=== PATIENT | male | born 1990 | race Two or more races ===

== ENCOUNTER 2024-10-03 13:33 | Emergency (ER) | payer BC ==
[~2024-10-03] VITALS: Ht 175.3 cm; Wt 72.6 kg
[2024-10-03] MEDS ORDERED: 0.9 % SODIUM CHLORIDE 1,000 ML IV STA (13:55)
[2024-10-03] MEDS ORDERED: LACTOBACILLUS ACIDOPHILUS 1 CAP CAP PO ONE (14:00)
[2024-10-03 14:58] LABS: BASO % 0.4 % (0.1-1.2); EOS # 0.04 (0.04-0.54); EOS % 0.3 % (0.7-7.0); LYMPH # 1.51 (1.18-3.74); LYMPH % 13.0 % (19.3-53.1); MEAN PLATELET VOLUME 9.80 fl (9.4-12.4); MONO # 0.75 (0.24-0.82); MONO % 6.4 % (4.7-12.5); NEUT # 9.26 (1.56-6.13); NEUT % 79.6 % (34.0-71.1); RED CELL DISTRIBUTION WIDTH 11.9 % (11.6-14.4)
[2024-10-03 15:14] LABS: BUN CREA RATIO 8.0 (7.0-25.0); CREATININE SERUM 1.18 mg/dL (0.70-1.30); GFR 71.54; GLUCOSE FASTING 104.0 mg/dL (65-100); OSMOLALITY SERUM 278.0 MOSM/KG (275-295)
[2024-10-03] MEDS ORDERED: FAMOTIDINE/PF 20 MG in 0.9 % SODIUM CHLORIDE 8 ML IV PUSH STA (16:13)
[2024-10-03] MEDS ORDERED: DIPHENOXYLATE HCL/ATROPINE 1 UDTAB TABLET PO ONE (16:15)
[2024-10-03 17:33] LABS: URINE APPEARANCE Clear; URINE BILIRRUBIN Negative (NEGATIVE); URINE BLOOD Negative; URINE COLOR Yellow; URINE GLUCOSE Negative (NEGATIVE); URINE KETONE 15 (NEGATIVE); URINE LEUKOCYTE Negative; URINE NITRATE Negative; URINE PROTEIN Negative (NEGATIVE); URINE UROBILINOGEN 0.2 E.U./dl
[2024-10-03 17:37] LABS: URINE BACTERIA 22.8 uL (0.0-1933); URINE CAST 2.05 uL (0.0-1.40); URINE EPITHELIAL CELLS 4.6 uL (0.0-38.8); URINE RBC 4.1 uL (0.0-20.8); URINE WBC 4.9 uL (0.0-23.2)
[2024-10-03 18:00] LABS: TYPE CELLS SQUAMOUS
[2024-10-03 18:01] LABS: URINE CRYSTALS MODERATE /HPF; URINE MUCUS MODERATE
[2024-10-03] MEDS ORDERED: PEPCID AC20 MG PO (18:40)
[2024-10-03] MEDS ORDERED: INTESTINEX680 M1 PO (18:40)
== END 2024-10-03 19:24 | disposition home or self-care (01) ==
LOC: ER 13:33
PROVIDERS: Emergency Medicine
DX: K52.9 Noninfective gastroenteritis and colitis, unspecified (principal)